=== PATIENT | male | born 2005 | race African-American/Black ===

== ENCOUNTER 2025-02-23 22:36 | Emergency (ER) | payer BC, SELFPAY ==
[2025-02-23 22:37] VITALS: BP 145/100; PULSE 77; RESP 17; TEMP 36.6; O2SAT 99; BMI 22.1
--- NOTE | 2025-02-23 23:12 | ED.WOUNDLAC ---
HPI - Wound/Laceration General Chief Complaint: Wound/Laceration Stated Complaint: small cut on right leg Time Seen by Provider: 02/23/25 22:48 Source: patient Mode of arrival: ambulatory Limitations: no limitations History of Present Illness ED Provider: Sebastián COSTA HPI narrative: The patient is a 19-year-old otherwise healthy male presenting to the ED for evaluation of a laceration to his lateral right knee. The patient reports he was using a box car checker to open a box when it slipped out of his hand and struck his right lateral knee. The patient has suffered a 1 cm laceration which is minimally gaping, bleeding controlled prior to arrival in the ED. Patient states he does not know his last tetanus shot. Related Data Allergies Allergy/AdvReac Type Severity Reaction Status Date / Time No Known Allergies Allergy Verified 02/23/25 22:41 Review of Systems Review of Systems: Yes all other systems are reviewed and are negative PMFSH Social History Social History Alcohol intake: current Alcohol intake frequency: holidays/special occasions only Alcohol type: hard liquor Smoked in Last 30 Days: No Use of substances other than those prescribed or required for medical reasons: No Advance Directives: No Advance Directives Information Provided: No Do you have a plan to hurt others: No Plan Physical Exam Vital Signs: Vital Signs: Last Vital Signs Temp 97.6 F 02/23/25 23:31 Pulse 82 02/23/25 23:31 Resp 16 02/23/25 23:31 BP 109/77 02/23/25 23:31 Pulse Ox 94 02/23/25 23:31 O2 Del Method Room Air 02/23/25 23:31 BMI result Body Mass Index 22.1 CONSTITUTIONAL: The patient appears non-toxic, well nourished and in no acute distress. Vital signs as documented. HEAD: Atraumatic, normocephalic. EYES: EOMs grossly intact, pupils equal, conjunctiva clear, no exudate. ENT: Nares patent, no discharge. Airway patent, no audible stridor, visible mucosa is pink and moist without noted lesions. NECK: trachea is midline, no obvious masses or gross abnormalities. CHEST: Symmetric movement, normal appearance. LUNGS: Non-labored work of breathing. CARDIAC: No evidence of hypoperfusion. ABDOMEN: Nondistended, no obvious injury. : Deferred. EXTREMITIES: Moves all extremities spontaneously without reported pain. There is a 1 cm minimally gaping laceration noted to the lateral right knee, hemostasis noted, distal CSM intact, full nonpainful range of motion. Laceration explored with manual traction, appears very superficial, no invasion into the subcutaneous tissue, no concern for joint involvement. No other obvious injury or deformity noted. NEURO: Alert and oriented x3, CN II-XII appear grossly intact. Cerebellar Functioning grossly intact. Speech clear and appropriate. SKIN: Warm, dry, color appropriate. No rashes or lesions noted. Medications Administered Discontinued Medications Generic Name Dose Route Start Last Admin Trade Name Freq PRN Reason Stop Dose Admin Diphtheria/Tetanus/Acell Pertussis 0.5 ml 02/23/25 23:10 02/23/25 23:23 Diphth,Pertus(Acell),Tet Adult 0.5 Ml Syringe IM 02/23/25 23:11 0.5 ml .ONCE ONE Administration Lidocaine HCl 5 ml 02/23/25 23:09 02/23/25 23:25 Lidocaine Hcl 1 % Mpf 5 Ml Vial INFILTRATI 02/23/25 23:10 5 ml ONCE ONE Administration Medical Decision Making Medical Decision Making MDM Narrative: 11:15 PM 02/23/2025 (Sandy COSTA): 19-year-old male presenting to the ED for evaluation of laceration to the lateral right knee. Examination reveals a 1 cm laceration without any evidence of invasion into the subcutaneous fascia, no concern for knee joint involvement. Distal CSM intact. Patient will have his tetanus updated and we will perform a laceration repair. Procedures Laceration Laceration 1: Site: lower extremity Side (If applicable): right Size (cm): 1 Description: linear Depth: simple, single layer Local Anesthetic: lidocaine 1% Amount of anesthesia used (mL): 2 Pre-repair: wound explored Skin layer closed with: nylon Size (cm): 4-0 Number of sutures: 2 Technique: simple, interrupted Discharge Plan Discharge Clinical Impression: Laceration Patient Disposition: Home, Self-Care Instructions: Laceration (ED) Additional Instructions: Thank you for choosing [facility]'s Emergency Department for your care today. Your laceration today appears noncomplicated. The laceration was repaired with nonabsorbable sutures which will need to be removed in 7-10 days. Please return to the emergency department or follow-up with your primary care provider for removal of sutures. Please apply bacitracin and a clean dry dressing to the laceration twice daily for the first 2-3 days. Then please keep the area clean and dry, but uncovered and exposed to the air to allow the laceration to heal. While it is perfectly acceptable to allow water to run over the sutures while showering, please do not swim, or submerge the laceration in standing water until the sutures are removed. You may take alternating (staggered) doses of ibuprofen 600mg and Tylenol 1000mg every 4 hours as needed for any additional pain. If you do not have a primary care physician, please call the [facility] at [phone] to establish a new primary care physician. While waiting to establish your new primary care physician, you can call our [facility] at [phone] for non-emergency needs. Please return to the emergency department if you develop any uncontrollable bleeding, re-opening of your wound, redness advancing >1-2 cm away from your wound, or white milky discharge from your wound. Please also return if you experience any other new or worsening symptoms or concerns. Print Language: Occitan
[2025-02-23] MEDS: Diphth,Pertus(ACell),Tet Adult 0.5 ML SYRINGE IM (23:23)
[2025-02-23] MEDS: Lidocaine HCl 1 % MPF 5 ML VIAL INFILTRATI (23:25)
[2025-02-23 23:31] VITALS: BP 109/77; PULSE 82; RESP 16; TEMP 36.4; O2SAT 94
[2025-02-23 23:52] VITALS: BP 109/77; PULSE 82; RESP 16; TEMP 36.4; O2SAT 94
== END 2025-02-23 23:53 | disposition home or self-care (01) ==
PROVIDERS: Emergency Provider Emergency Medicine
DX: S81.812A Laceration without foreign body, left lower leg, initial encounter (principal); W26.0XXA Contact with knife, initial encounter; Y93.9 Activity, unspecified; Y92.9 Unspecified place or not applicable; Y99.8 Other external cause status; Z23 Encounter for immunization
CPT/HCPCS: 12001; 90471; 90715; 99284; J2003